=== PATIENT | female | born 1985 | race Asian ===

== ENCOUNTER 2021-10-19 11:26 | Inpatient (IN) ==
--- NOTE | 2021-10-19 12:29 | Labor Progress Brief Note ---
Date of Service October 19, 2021 Subjective Patient arrives to L&D after an evaluation in ER earlier today for possible stroke vs eclampsia vs Mcintyre's Palsy. She began noticing a R sided facial droop this AM, never had experienced similar before, and presented to ED. She has no language or speech deficits, no motor deficits other than in the face, and no pain. She denies vision changes, RUQ pain, or edema. Almita is 38w6d with an otherwise uncomplicated , aside from known Rh negative status. Prior vaginal delivery x1 in the [facility]. 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 The ER started her on valtrex and prednisone which is acceptable and may speed her recovery. (2) Gestational hypertension without significant proteinuria during in third trimester, antepartum: Plan: Given HTN x multiple measurements, may be partially or fully r/t situational anxiety but meets diagnosis of gHTN. Indication for delivery explained to patient and FOB, and they accept. Labs are all normal including renal and hepatic function, platelets, and urine is negative for protein in ER, so I doubt preeclampsia and doubt also that her palsy is directly related to her HTN (other than perhaps by causing anxiety, which is resulting in elevated BP values). Physical Exam Constitutional: WD/WN, vitals as above Eyes: PERRL, conjunctivae normal, anicteric sclerae ENMT: external ear and nose normal, oropharynx normal Droop on R / flattening of facial features on that side noted. Neck: supple Respiratory: normal respiratory effort and able to speak in complete sentences; no respiratory distress Cardiovascular: Rate/Rhythm: regular rate and regular rhythm Gastrointestinal (Abdomen): Gravid / AGA, nontender Musculoskeletal: no cyanosis or clubbing, extremities motor strength 5/5 Skin: no rashes, warm and dry Neurologic: Exam reveals partial failure of forehead wrinkle on R, partial failure of 7th nerve on R (able to fully actively close the lid, but not able to resist my lifting the lid), partial failure of 3rd nerve on the R (droop of lid, not as fully open as the L), unable to maintain cheeks puffed on R, and no lift of R lips with smile. Flattened nasolabial folds at rest on R. Normal L facial function in all zones. Shoulder shrug, RUE flexion/extension, Finger spreading strength are all 5/5 bilaterally. Palsy is limited to cranial nerves and is not 100% complete, she has decreased but not absent strength in these areas. Patellar DTRs are 2+. Psychiatric: A+Ox3, euthymic affect (A+Ox3, anxious appropriate to circumstances) Genitourinary: Speculum/Bimanual Exam: no vaginal lesions, no vaginal bleeding and uterus nontender OB Exam Abdomen: + vertex and + estimated weight (7) Manual OB Exam: + cervical dilation 3 cm, + cervical effacement 90%, + station -2 and + amniotic fluid (No leaking evident) OB Exam Monitor Tracing: + external FHT monitor used, + external uterine monitor used and + category I Results & Data ([facility]) Vital Signs (Past 12 Hours) Vital Signs Pulse BP 10/19/21 11:59 78 155/104 H 10/19/21 11:47 81 166/100 H 10/19/21 11:37 87 167/92 H 10/19/21 11:36 85 178/92 H Coding Level of Care Code None Diagnoses Mcintyre's palsy G51.0 Gestational hypertension without significant proteinuria during in third trimester, antepartum O13.3
[2021-10-19] MEDS ORDERED: LABETALOL HCL IV 5 MG/ML 20ML IV PRN (12:58)
[2021-10-19] MEDS ORDERED: OXYTOCIN 30 UNITS/500 ML BAG IV PRN ×3 (12:58→17:20)
[2021-10-19] MEDS ORDERED: LACTATED RINGER'S 1,000 ML IV PRN (12:58)
[2021-10-19] MEDS ORDERED: SODIUM CHLORIDE 0.9% INJ 10 ML VIAL ONE (15:27)
[2021-10-19] MEDS ORDERED: ePHEDrine sulfate 50 MG/ML AMP ONE (15:27)
[2021-10-19] MEDS ORDERED: fentaNYL citrate 100 MCG/2 ML VIAL ONE (15:28)
[2021-10-19] MEDS ORDERED: fentaNYL 2MCG/ML ROPIVACAINE 1.25MG/ML 100 ML BAG EPI ONE (15:28)
[2021-10-19] MEDS ORDERED: BUPIVACAINE 0.25% 30 ML VIAL ONE (15:28)
[2021-10-19] MEDS ORDERED: LIDOCAINE 1% LOCAL 20 ML VIAL ONE (16:24)
[2021-10-19] MEDS ORDERED: miSOPROStoL 200 MCG TAB ONE (16:25)
--- NOTE | 2021-10-19 17:19 | Delivery Summary ---
Vaginal Delivery Summary Date of Service October 19, 2021 Vaginal Delivery Summary and 2nd Degree LAC The patient dilated to complete and pushed to deliver a viable male infant Apgars 8 and 9 via over 2nd degree perineal laceration. Mouth and nose bulb suctioned at perineum. Shoulders and body delivered with ease. Infant was vigorous and crying at . Cord clamped at 30 seconds of life and infant to maternal abdomen where the cord was then doubly clamped and cut. Placenta delivered spontaneously and intact, three-vessel cord. Hemostasis not achieved with dilute pitocin and uterine massage and therefore 800mcg of rectal cytotec given. Hemostasis improved. Cervix and sulci intact. EBL 400 cc. Laceration repaired in multiple layers with 2-0 and 3-0 vicryl after 1% local lidocaine anesthesia. Mother and baby stable recovery. [facility] [place] Vaginal Delivery Charge Delivery Type Details: and 2nd Degree LAC
[2021-10-19] MEDS ORDERED: HYDROCORTISONE ACETATE 25 MG SUPP PR PRN (17:20)
[2021-10-19] MEDS ORDERED: BENZOCAINE 20% AER SPR 82.5 GM CAN EXT PRN (17:20)
[2021-10-19] MEDS ORDERED: oxyCODONE/ACETAMINOPHEN 5mg/325mg TAB PO PRN (17:20)
[2021-10-19] MEDS ORDERED: ACETAMINOPHEN 325 MG TAB PO PRN (17:20)
[2021-10-19] MEDS ORDERED: miSOPROStoL 200 MCG TAB PR ONE (17:20)
[2021-10-19] MEDS ORDERED: SUPERCREAM 0.870% 15 GM JAR EXT PRN (17:20)
[2021-10-19] MEDS: DIPHTHERIA/TETANUS/PERTUSSIS 0.5 ML SYR/VIAL IM ONE (17:28)
[2021-10-19] MEDS ORDERED: OXYTOCIN 20 UNITS in LACTATED RINGER'S 1,000 ML IV SCH (17:45)
[2021-10-19] MEDS: IBUPROFEN 600 MG TAB PO PRN (18:18)
[2021-10-19] MEDS ORDERED: METHYLERGONOVINE MALEATE 0.2 MG/ML AMP IM STA (19:54)
--- NOTE | 2021-10-19 19:59 | Obstetrical Progress Note ---
Date of Service October 19, 2021 Assessment & Plan (1) PPH ( hemorrhage): Plan: Will see how pt responds to clot evacuation and methergine. BP noted. Check H/H now. Reviewed all with couple. if unable to void in 4hr suggest straight cath due to possible poor tone. Admission and Anticipated Discharge Date Admission Date: October 19, 2021 Subjective called to pt bedside by nursing . pt denies dizziness, lightheadedness. tired from days events. pt required straight cath with 800cc of urine noted. prior to that when up in br, noted one gush of blood. did have 800mcg cytotec and dilute pit Review of Systems Constitutional: as per Subjective / HPI Physical Exam Constitutional: WD/WN, vitals as above Genitourinary: Deep fundal pressure with notably fundus 2 above and to the right. 2 large clots, approx 250cc noted and fundus now firm at u, sve done and no large clots in vault although suspect one at os but GEOFF contracted down. Results & Data ([facility]) Vital Signs (Past 12 Hours) Vital Signs Temp Pulse Resp BP Pulse Ox 10/19/21 19:07 98 H 128/59 L 10/19/21 18:52 90 131/75 10/19/21 18:37 100 H 18 137/82 10/19/21 18:07 100 H 20 140/72 10/19/21 17:52 103 H 20 150/70 H 10/19/21 17:37 149/86 H 10/19/21 17:22 100 H 18 145/78 H 10/19/21 17:07 96 H 20 147/72 H 10/19/21 16:54 20 174/79 H 10/19/21 16:52 115 H 158/81 H 10/19/21 16:44 110 H 98 10/19/21 16:39 104 H 153/81 H 98 10/19/21 16:37 106 H 148/92 H 10/19/21 16:26 102 H 138/85 10/19/21 15:27 96 H 148/80 H 10/19/21 14:56 86 137/80 10/19/21 14:26 80 133/83 10/19/21 13:55 80 142/89 H 10/19/21 13:38 86 145/84 H 10/19/21 13:22 90 134/80 10/19/21 13:07 84 129/81 10/19/21 12:52 77 136/81 10/19/21 12:37 80 140/80 10/19/21 12:24 97.7 F 78 20 145/92 H 10/19/21 12:22 78 145/92 H 10/19/21 11:59 78 155/104 H 10/19/21 11:47 81 166/100 H 10/19/21 11:37 98.1 F 87 20 167/92 H 10/19/21 11:36 85 178/92 H PG Care Time/CCT Total # of Minutes Spent Total Time Spent with Patient: Total time spent is greater than 50% in coordination of care (as documented) at patient's floor/unit and/or counseling patient: Coding Level of Care Code None Diagnoses PPH ( hemorrhage) O72.1
[2021-10-19 20:13] LABS: Hematocrit (blood only) 35.7 % (37-47); Hemoglobin 12.1 g/dL (12.0-16.0)
[2021-10-19] MEDS: DOCUSATE SODIUM 100 MG CAP PO SCH (20:58)
[2021-10-19] MEDS: valACYclovir HCL 500 MG TABLET PO SCH (20:59)
[2021-10-19] MEDS ORDERED: COUGH DROP (SUGAR FREE) LOZ 24 LOZ/1 BOX BUCCAL ONE (23:44)
[2021-10-20] MEDS ORDERED: NURSING DECISION MEDICATION ONE (05:13)
[2021-10-20] MEDS ORDERED: COUGH DROP (SUGAR FREE) LOZ 24 LOZ/1 BOX BUCCAL PRN (05:26)
--- NOTE | 2021-10-20 06:21 | Obstetrical Progress Note ---
Date of Service <Aaron Allen DO - Last Filed: 10/20/21 08:39> October 20, 2021 Assessment & Plan <Aaron Allen DO - Last Filed: 10/20/21 08:39> (1) Encounter for care and examination after delivery: 35 yo post day 1 from vaginal delivery, doing well. -Continue routine post care. -vital signs reviewed and WNL. (Tmax 37.5) -Blood type O-, GBS negative, Rubella immune -Encourage ambulation, monitor and control pain with Motrin, tylenol PRN, resume regular diet, monitor lochia. -encourage breast feeding. -Hemoglobin 11.2 -Discussed discharge with patient, patient would like to stay until tomorrow morning to monitor lochia. <Marianna Henson MD, FACOG - Last Filed: 10/20/21 08:50> (1) Encounter for care and examination after delivery: Subjective <Aaron Allen DO - Last Filed: 10/20/21 08:39> Ambulation: ambulating normally Voiding: no voiding problems Passing Gas:: Yes Diet Tolerance:: regular diet Lochia:: Moderate Feeding Type:: breast feeding Current Pain Level(1-10): 0 Review of Systems Denies fever, chills, sweats Denies shortness of breath, difficulty breathing, chest pain, palpitations, chest pressure. Denies breast pain. Denies dysuria. Denies headache or changes in vision Physical Exam <Aaron Allen DO - Last Filed: 10/20/21 08:39> General: Alert, oriented. No acute distress. Cardiac: Regular rate and rhythm, no murmurs/rubs/gallops. Respiratory: Clear to auscultation bilaterally a/p, no wheezes/rales/rhonchi. No increased work of breathing. Symmetrical chest rise. No respiratory distress. Abdomen: Soft, nontender, nondistended. Bowel sounds present. Uterus: Uterine fundus firm, palpable at umbilicus. Lower Extremities: No lower extremity edema or swelling. No deep calf pain. Elías's negative bilaterally Results & Data ([facility]) <Aaron Allen DO - Last Filed: 10/20/21 08:39> Vital Signs (Past 12 Hours) Vital Signs Temp Pulse Pulse Resp BP BP Pulse Ox 10/20/21 04:30 36.8 C 80 18 117/73 10/19/21 23:49 37.5 C 91 H 18 127/81 99 10/19/21 22:38 93 H 124/59 L 10/19/21 22:23 92 H 135/62 10/19/21 22:08 93 H 137/64 10/19/21 21:53 90 135/57 L 10/19/21 21:38 88 138/91 10/19/21 21:24 88 152/100 H 10/19/21 21:08 81 147/71 H 10/19/21 20:53 96 H 146/70 H 10/19/21 20:38 90 149/72 H 10/19/21 20:23 96 H 137/70 10/19/21 20:19 37.2 C 18 10/19/21 20:08 105 H 138/68 10/19/21 19:07 98 H 128/59 L 10/19/21 18:52 90 131/75 10/19/21 18:37 100 H 18 137/82 <Marianna Henson MD, FACOG - Last Filed: 10/20/21 08:50> Co-Signing Physician Notes Resident Physician Supervision Note: I was present with Dr. Allen during the history and exam. I discussed the case with the resident and agree with the findings and plan as documented in the note. Any exceptions or clarifications are listed here: doing well, voiding well, feels like she empties. no further clots. got pp pit, rectal cytotec and one dose of im methergine. h/h last night and this am are stable. prefers to stay until tomorrow to watch bleeding. breast/RI/rh neg, baby rh pos and so will need rhogam. Documented By: Marianna Henson MD, FACOG Resident Activity Tracking <Aaron Allen DO - Last Filed: 10/20/21 08:39> Resident Involvement: Resident Care Provided Care Provided: OB Delivery
[2021-10-20 06:22] LABS: Hematocrit (blood only) 33.1 % (37-47); Hemoglobin 11.2 g/dL (12.0-16.0)
[2021-10-20] MEDS: IBUPROFEN 600 MG TAB PO PRN ×2 (09:16→20:22)
[2021-10-20] MEDS: DOCUSATE SODIUM 100 MG CAP PO SCH ×2 (09:17→20:22)
[2021-10-20] MEDS: predniSONE 20 MG TAB PO SCH (09:18)
[2021-10-20] MEDS: valACYclovir HCL 500 MG TABLET PO SCH ×3 (09:18→20:24)
[2021-10-20] MEDS: DIPHTHERIA/TETANUS/PERTUSSIS 0.5 ML SYR/VIAL IM ONE (13:39)
--- NOTE | 2021-10-21 08:37 | Obstetrical Progress Note ---
Date of Service October 21, 2021 Assessment & Plan (1) Gestational hypertension without significant proteinuria during in third trimester, antepartum: Patient with BP 123/77 this morning, has not required antihypertensive treatment, unclear how much of her HTN pre-delivery was r/t anxiety vs primary HTN. Delivered vaginally without complication. Rh neg, Rhogam given 10/20/21. 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 Patient requests physical therapy, which I am happy to refer her for, though I am not specifically aware of what treatments will or may be offered for her. Continues prednisone and antiviral which may be helpful in resolving palsy. Can f/u with neurology as outpatient. Patient is concerned that the palsy is due to her bumping her R forehead days ago. Discussed that the involvement of multiple facial nerves means this is not a local response to a bump on her forehead; reviewed again the occasional association of Mcintyre's Palsy and , and the typical expected course of resolution with time. Subjective Ambulation: ambulating normally Voiding: no voiding problems Passing Gas:: Yes Diet Tolerance:: regular diet Lochia:: Small Feeding Type:: breast feeding Patient with many questions and some anxiety about her ongoing Mcintyre's Palsy Physical Exam Constitutional WD/WN, vitals as above Eyes PERRL, conjunctivae normal, anicteric sclerae Neck normal visual inspection Respiratory normal respiratory effort and able to speak in complete sentences; no respiratory distress and no labored breathing Cardiovascular Rate/Rhythm: regular rate and regular rhythm Extremities: no edema Chest (Breasts) Chest: normal inspection of chest Gastrointestinal (Abdomen) Inspection/Auscultation: abdomen normal to inspection Soft, postgravid Neurologic Ongoing Mcintyre's Palsy on R side, patient also noticing and reporting affected taste sensation on that side, otherwise no change / unimproved but also not worse. Able to eat with some dribble of liquids. Able to close eye. Psychiatric A+Ox3, euthymic affect Genitourinary OB Exam Abdomen: + fundal height Fundus: + firm and + relation to umbilicus (fundus just below umbilicus); not tender Results & Data ([facility]) Vital Signs (Past 12 Hours) Vital Signs Temp Pulse Resp BP Pulse Ox 10/21/21 01:00 97.7 F 63 16 123/77 98
[2021-10-21] MEDS: IBUPROFEN 600 MG TAB PO PRN (09:26)
[2021-10-21] MEDS: DOCUSATE SODIUM 100 MG CAP PO SCH (09:27)
[2021-10-21] MEDS: valACYclovir HCL 500 MG TABLET PO SCH ×2 (09:28→14:06)
[2021-10-21] MEDS: predniSONE 20 MG TAB PO SCH (09:28)
== END 2021-10-21 14:35 | disposition home or self-care (01) | DRG 806 ==
LOC: OPB 11:26 → 4S1 11:28 → 4S2 23:14
DX: O99.354 Diseases of the nervous system complicating childbirth; G51.0 Bell's palsy; Z3A.38 38 weeks gestation of pregnancy; O72.1 Other immediate postpartum hemorrhage; O70.1 Second degree perineal laceration during delivery; Z37.0 Single live birth; O13.4 Gestational [pregnancy-induced] hypertension without significant proteinuria, complicating childbirth